=== PATIENT | female | born 1995 | race American Indian/Alaskan Native ===

== ENCOUNTER 2018-11-23 19:56 | Emergency (ER) | payer BC ==
[2018-11-23 20:06] VITALS: RESP 16; TEMP 98.4; O2SAT 100
[2018-11-23 21:42] LABS: HCG,QUALITATIVE URINE NEGATIVE (NEGATIVE)
[2018-11-23 21:43] LABS: SQUAMOUS EPITHIAL 3 /hpf (0-5); URINE BACTERIA RARE (<OCC); URINE BILIRUBIN NEGATIVE (NEGATIVE); URINE BLOOD NEGATIVE (NEGATIVE); URINE CLARITY Clear (Clear); URINE COLOR Yellow (YELLOW); URINE GLUCOSE (UA) NORMAL (Normal); URINE LEUKOCYTE ESTERASE NEG Leu/uL (Negative); URINE PROTEIN NEGATIVE (NEGATIVE); URINE UROBILINOGEN NORMAL mg/dL (0.2-1.0)
[2018-11-23 21:58] LABS: BARBITURATES, UR NEGATIVE (NEGATIVE); BENZODIAZEPINES, UR NEGATIVE (NEGATIVE); OPIATES, UR NEGATIVE (NEGATIVE); PHENCYCLIDINE, UR NEGATIVE (NEGATIVE)
--- NOTE | 2018-11-23 22:11 | C.PDOC ---
History Of Present Illness 23 year old female presents with minor LLQ abdominal colic. Reports normal bowel movements. Requesting test. Time Seen by Provider: 11/23/18 20:44 Chief Complaint (Nursing): Abdominal Pain History Per: Patient History/Exam Limitations: no limitations Onset/Duration Of Symptoms: Hrs Current Symptoms Are (Timing): Still Present Location Of Pain/Discomfort: LLQ Quality Of Discomfort: Unable To Describe Associated Symptoms: denies: Diarrhea, Constipation Exacerbating Factors: None Alleviating Factors: None Recent travel outside of the [place]: No Abnormal Vaginal Bleeding: No Past Medical History Reviewed: Historical Data, Nursing Documentation, Vital Signs Vital Signs: Last Vital Signs Temp 98.4 F 11/23/18 20:01 Pulse 70 11/23/18 20:01 Resp 16 11/23/18 20:01 BP 123/73 11/23/18 20:01 Pulse Ox 100 11/23/18 20:01 Family History: States: Unknown Family Hx - Social History Hx Alcohol Use: No Hx Substance Use: No - Immunization History Hx Influenza Vaccination: No Hx Pneumococcal Vaccination: No Review Of Systems Constitutional: Negative for: Fever, Chills Cardiovascular: Negative for: Chest Pain, Palpitations Respiratory: Negative for: Cough, Shortness of Breath Gastrointestinal: Positive for: Abdominal Pain. Negative for: Nausea, Vomiting Genitourinary: Negative for: Dysuria, Hematuria Neurological: Negative for: Weakness, Numbness Physical Exam - Physical Exam Appears: Non-toxic Skin: Normal Color, Warm Head: Atraumatic, Normacephalic Eye(s): bilateral: Normal Inspection Oral Mucosa: Moist Neck: Normal, Supple Chest: Symmetrical, No Tenderness Cardiovascular: Rhythm Regular Respiratory: Normal Breath Sounds, No Rales, No Rhonchi, No Wheezing Gastrointestinal/Abdominal: Soft, No Tenderness, Other (Dull to percussion on right and left, tympanic at epigastrium) Neurological/Psych: Oriented x3, Normal Speech ED Course And Treatment - Laboratory Results Lab Results: Urine Color Yellow (YELLOW) 11/23/18 21:30 Urine Clarity Clear (Clear) 11/23/18 21:30 Urine pH 6.0 (5.0-8.0) 11/23/18 21:30 Ur Specific [place] 1.013 (1.003-1.030) 11/23/18 21:30 Urine Protein Negative mg/dL (NEGATIVE) 11/23/18 21:30 Urine Glucose (UA) Normal mg/dL (Normal) 11/23/18 21:30 Urine Ketones Negative mg/dL (NEGATIVE) 11/23/18 21:30 Urine Blood Negative (NEGATIVE) 11/23/18 21:30 Urine Nitrate Negative (NEGATIVE) 11/23/18 21:30 Urine Bilirubin Negative (NEGATIVE) 11/23/18 21:30 Urine Urobilinogen Normal mg/dL (0.2-1.0) 11/23/18 21:30 Ur Leukocyte Esterase Neg [place]/uL (Negative) 11/23/18 21:30 Urine WBC (Auto) < 1 /hpf (0-5) 11/23/18 21:30 Ur Squamous Epith Cells 3 /hpf (0-5) 11/23/18 21:30 Urine Bacteria Rare (<OCC) 11/23/18 21:30 Urine HCG, Qual Negative (NEGATIVE) 11/23/18 21:30 Urine HCG, Qual Negative (NEGATIVE) 11/23/18 21:30 Lab Interpretation: Normal (ua neg.) Urine POC: Negative O2 Sat by Pulse Oximetry: 100 (Room air) Pulse Ox Interpretation: Normal - Radiology CXR: Interpreted by Me CXR Interpretation: Yes: No Acute Disease - Other Rad abd x 2 X-Ray: Interpreted by Me (+FOS) Progress Note: pt defers lab testing with informed consent after preg confirmed negative, would like x-ray to illustrate constipation. Reevaluation Time: 22:11 Reassessment Condition: Improved (remains asymptomatic) Medical Decision Making Medical Decision Making: NOT constip abd colic Disposition Doctor Will See Patient In The: Office Counseled Patient/Family Regarding: Studies Performed, Diagnosis - Disposition Referrals: [facility] [Outside] [facility] [Outside] [facility] [Outside] Disposition: HOME/ ROUTINE Disposition Time: 22:11 Condition: GOOD Additional Instructions: trail a laxative overnight diet and exercise changes test NEGATIVE Instructions: Constipation, Adult (DC) Forms: [facility] (Bengali) - Clinical Impression Clinical Impression: Abdominal pain, colicky - Scribe Statement The provider has reviewed the documentation as recorded by the Scribe Anil Saldaña All medical record entries made by the Scribe were at my direction and personally dictated by me. I have reviewed the chart and agree that the record accurately reflects my personal performance of the history, physical exam, medical decision making, and the department course for this patient. I have also personally directed, reviewed, and agree with the discharge instructions and disposition.
[2018-11-23 22:26] VITALS: BP 110/86; PULSE 76
--- NOTE | 2018-11-24 08:14 | RAD ---
Date of service: 11/23/2018 PROCEDURE: Radiographs of the chest and abdomen (obstructive series) HISTORY: Abdominal pain COMPARISON: No prior. TECHNIQUE: AP radiograph of the chest, with upright and supine radiographs of the abdomen. 3 views obtained. FINDINGS: CHEST: Lungs: Clear. Cardiovascular: Normal size heart. No pulmonary vascular congestion. No aortic atherosclerotic calcification present Pleura: No pleural fluid. No pneumothorax. Other findings: None. ABDOMEN AND PELVIS: Bowel: Moderate amount of stool is seen within the right and colon consistent with mild localized fecal retention.. No evidence of mechanical obstruction. Free air: None. Bones: Unremarkable. Other findings: In situ umbilical ring.. IMPRESSION: Unremarkable radiographs of chest.. No evidence of mechanical bowel obstruction. Findings consistent with mild constipation.
== END 2018-11-23 22:26 | disposition home or self-care (01) ==
LOC: C.ER 19:56
DX: R10.84 Generalized abdominal pain (principal)
CPT/HCPCS: 74022; 81001; 81025; 84703; 99284; G0480